=== PATIENT | female | born 1950 | race Caucasian/White ===

== ENCOUNTER 2019-09-07 01:59 | Emergency (ER) | payer MEDICARE, OTHER ==
[~2019-09-07] VITALS: Ht 157.5 cm; Wt 85.0 kg
[~2019-09-07 01:59] MED LIST: ADV50250 IH; ALBU18HF2 IH; ASPI-1265 PO; CICL6.1H4 IH; ESCI20TA29 PO; LEVO50TA67 PO; MONT10TA21 PO; MULT-821 PO; OLOP2.5D OP; PANT-47 PO
[2019-09-07] MEDS ORDERED: morphine 4 MG/ML inj SYRINge IM ONE ×2 (03:40→05:10)
[2019-09-07 04:41] VITALS: BP 154/69
[2019-09-07] MEDS ORDERED: CYCL-1 PO (05:50)
[2019-09-07] MEDS ORDERED: FLUT1DIS10 INH (19:04)
[2019-09-07] MEDS ORDERED: LEVO50TA8 PO (19:04)
[2019-09-07] MEDS ORDERED: ESCI20TA45 PO (19:04)
[2019-09-07] MEDS ORDERED: CYCL1DRO (19:04)
[2019-09-07] MEDS ORDERED: OMEP-50 PO (19:04)
[2019-09-07] MEDS ORDERED: METH2.5T PO (19:04)
[2019-09-07] MEDS ORDERED: METO-395 PO (19:04)
[2019-09-07] MEDS ORDERED: ATOR10TA70 PO (19:04)
[2019-09-07] MEDS ORDERED: CYCL1DRO EACHEYE (19:04)
[2019-09-07] MEDS ORDERED: METF750T46 PO (19:04)
[2019-09-07] MEDS ORDERED: PRE1T PO (19:04)
[2019-09-07] MEDS ORDERED: MONT10TA26 PO (19:04)
== END 2019-09-07 06:14 | disposition home or self-care (01) ==
LOC: ER 01:59
DX: M25.552 Pain in left hip (principal); E78.00 Pure hypercholesterolemia, unspecified; K21.9 Gastro-esophageal reflux disease without esophagitis; G89.29 Other chronic pain; F41.9 Anxiety disorder, unspecified; F32.9 Major depressive disorder, single episode, unspecified; Z90.49 Acquired absence of other specified parts of digestive tract; Z90.710 Acquired absence of both cervix and uterus; Z98.890 Other specified postprocedural states; Z56.0 Unemployment, unspecified; Z88.2 Allergy status to sulfonamides; Z79.82 Long term (current) use of aspirin; Z79.899 Other long term (current) drug therapy
CPT/HCPCS: 73502; 96372; 99284; J2270

== ENCOUNTER 2019-09-07 13:38 | Inpatient (IN) | payer MEDICARE, OTHER ==
[~2019-09-07] VITALS: Ht 157.5 cm; Wt 81.8 kg
[~2019-09-07 13:38] MED LIST changes: +CYCL-1 PO
[2019-09-07] MEDS ORDERED: ondansetron 4mg rapidly disintigrating tab PO ONE (15:15)
[2019-09-07] MEDS ORDERED: morphine 4 MG/ML inj SYRINge IM ONE (15:15)
[2019-09-07 15:38] LABS: BASOPHILS # (AUTO) 0.1 X10'3 (0-0.2); BASOPHILS % (AUTO) 0.8 % (0-1); EOSINOPHILS # (AUTO) 0.3 X10'3 (0-0.9); EOSINOPHILS % (AUTO) 2.2 % (0-6); HEMATOCRIT 32.6 % (35.0-45.0); HEMOGLOBIN 10.9 g/dl (12.0-16.0); LYMPHOCYTES % (AUTO) 14.4 % (21-51); MEAN CORPUSCULAR HEMOGLOBIN 31.5 PG (27.0-31.0); MEAN CORPUSCULAR HGB CONC 33.6 g/dL (33.0-36.5); MEAN CORPUSCULAR VOLUME 93.6 FL (78-98); MEAN PLATELET VOLUME 8.4 FL (7.4-10.4); MONOCYTES # (AUTO) 0.9 X10'3 (0-0.9); MONOCYTES % (AUTO) 6.3 % (2-12); NEUTROPHILS # (AUTO) 10.5 X10'3 (1.8-7.7); NEUTROPHILS % (AUTO) 76.3 % (42-75); PLATELET COUNT 201 X10'3 (140-440); RED BLOOD COUNT 3.48 X10'6 (4.20-5.60); RED CELL DISTRIBUTION WIDTH 14.1 % (11.5-14.5); WHITE BLOOD COUNT 13.8 X10'3 (4.5-11.0)
[2019-09-07 15:54] LABS: ALANINE AMINOTRANSFERASE 58 U/L (12-78); ALBUMIN 3.5 G/DL (3.4-5.0); ALBUMIN/GLOBULIN RATIO 0.9 (1.1-1.5); ALKALINE PHOSPHATASE 127 IU/L (46-116); ANION GAP 5 (8-16); ASPARTATE AMINO TRANSFERASE 36 U/L (10-37); BILIRUBIN,TOTAL 0.8 MG/DL (0.1-1.0); BLOOD UREA NITROGEN 29 MG/DL (7-18); BUN/CREATININE RATIO 17.5 (6.6-38.0); C-REACTIVE PROTEIN 5.01 MG/DL (0.0-0.5); CALCIUM 8.8 MG/DL (8.5-10.1); CHLORIDE 98 MMOL/L (99-107); CREATININE 1.66 MG/DL (0.40-0.90); GLUCOSE 106 MG/DL (70-104); POTASSIUM 4.5 MMOL/L (3.5-5.1); SODIUM 129 MMOL/L (135-145); TOTAL CARBON DIOXIDE 25.6 MMOL/L (24-32); TOTAL PROTEIN 7.5 G/DL (6.4-8.2); eGFR 31 ML/MIN
[2019-09-07 17:52] LABS: CLARITY,URINE CLOUDY (Clear); COLOR,URINE YELLOW (Yellow); GLUCOSE, URINE NEGATIVE (Neg); KETONES,URINE TRACE mg/dl (Neg); LEUKOCYTE ESTERASE ,URINE LARGE (Neg); NITRITES, URINE NEGATIVE (Neg); OCCULT BLOOD,URINE TRACE-INTACT (Neg); PROTEIN,URINE NEGATIVE (Neg); UROBILINOGEN,URINE 0.2 E.U/dL (0.2-1.0)
[2019-09-07 17:56] LABS: UA COLLECTION TYPE NON-SPECIFIED
[2019-09-07 18:01] LABS: BACTERIA,URINE 3+ /HPF (Neg); MUCUS STRANDS FEW /LPF (Neg); RBC,URINE 0-2 /HPF (0-2); SQUAMOUS EPITHELIAL CELL,UR MANY /LPF (FEW); WBC,URINE TNTC /HPF (0-4)
[2019-09-07] MEDS ORDERED: CefTRIAXone/D5W-Rocephin 1gm 50 ML IV STA (18:43)
[2019-09-07] MEDS ORDERED: morphine 4 MG/ML inj SYRINge IV PRN (18:45)
[2019-09-07] MEDS ORDERED: CYCL1DRO EACHEYE (19:04)
[2019-09-07] MEDS ORDERED: LEVO50TA8 PO (19:04)
[2019-09-07] MEDS ORDERED: FLUT1DIS10 INH (19:04)
[2019-09-07] MEDS ORDERED: ESCI20TA45 PO (19:04)
[2019-09-07] MEDS ORDERED: CYCL1DRO (19:04)
[2019-09-07] MEDS ORDERED: OMEP-50 PO (19:04)
[2019-09-07] MEDS ORDERED: ATOR10TA70 PO (19:04)
[2019-09-07] MEDS ORDERED: METH2.5T PO (19:04)
[2019-09-07] MEDS ORDERED: MONT10TA26 PO (19:04)
[2019-09-07] MEDS ORDERED: METF750T46 PO (19:04)
[2019-09-07] MEDS ORDERED: METO-395 PO (19:04)
[2019-09-07] MEDS ORDERED: PRE1T PO (19:04)
[2019-09-07] MEDS ORDERED: LORazepam 2 mg/ml vial IV ONE (19:15)
[2019-09-07] MEDS ORDERED: HYDROcodone/acetaminophen 5mg/325mg tablet PO PRN (19:40)
[2019-09-07] MEDS ORDERED: ondansetron/PF 4mg/2ml inj IV PRN (19:40)
[2019-09-07] MEDS ORDERED: acetaminophen 325mg tablet PO PRN ×2 (19:40)
[2019-09-07] MEDS ORDERED: mag hydrox/Alum hydrox/simeth 30ml oral suspension PO PRN (19:40)
[2019-09-07] MEDS ORDERED: morphine 2 MG/ML inj. syringe IV PRN (19:40)
[2019-09-07] MEDS ORDERED: morphine 4 MG/ML inj SYRINge IV STA (20:08)
[2019-09-07] MEDS: morphine 2 MG/ML inj. syringe IV PRN (20:18)
--- NOTE | 2019-09-07 20:55 | NUR ---
Received report from Dwaine GARRIDO from ED. Patient came up to floor via gurney from MRI. Accompanied by patient's S/O. Used slide board to move patient into bed. Bed placed in locked and low position. Call light placed within reach.
[2019-09-07 21:00] VITALS: BP 107/53
[2019-09-07] MEDS: budesonide 0.5mg/2ml UD nebule IH SCH (21:05)
[2019-09-07] MEDS ORDERED: gadobutrol 10mmol/10ml inj. IV ONE (21:13)
--- NOTE | 2019-09-07 21:39 | NUR ---
Page out to Dr. Salcedo regarding need for specific orders.
--- NOTE | 2019-09-07 22:06 | NUR ---
Dr. Salcedo called back and he is ok with placing patient on a CPAP, does not want the UA repeated at this time and no need for a PT eval and treat. I read him the report from the mri of lower extremity that shows possible septic arthritis. He does not want a PT eval until something is done regarding the fluid to the leg/hip and possible septic arthritis.
[2019-09-07] MEDS ORDERED: insulin Lispro (HumaLOG) vial - multi-dose SQ SCH (22:15)
[2019-09-07] MEDS ORDERED: dextrose ORAL solution 15 GM/59 ML bottle PO PRN ×2 (22:15)
[2019-09-07] MEDS ORDERED: MESSAGE TO PHARMACY PO ONE (22:15)
[2019-09-07] MEDS ORDERED: glucagon, human recombinant 1mg kit SUBCUT PRN (22:15)
[2019-09-07] MEDS ORDERED: dextrose 50%-water 50ml dispensing syringe IV PRN ×2 (22:15)
[2019-09-07] MEDS: cycloSPORINE 0.05% ophthalmic emulsion EACHEYE SCH (22:35)
--- NOTE | 2019-09-08 00:04 | NUR ---
Student documentation: I have reviewed and agree with all interventions, assessments performed and documented by Coni Student Nurse.
[2019-09-08] MEDS: HYDROcodone/acetaminophen 10/325mg tab PO PRN ×3 (04:59→21:02)
[2019-09-08 06:00] VITALS: BP 122/55
--- NOTE | 2019-09-08 06:39 | NUR ---
Problems reprioritized. Patient report given, questions answered & plan of care reviewed with Bhavna GARRIDO.
[2019-09-08 06:57] LABS: BASOPHILS % (AUTO) 0.2 % (0-1); EOSINOPHILS # (AUTO) 0.1 X10'3 (0-0.9); EOSINOPHILS % (AUTO) 1.2 % (0-6); HEMOGLOBIN 10.4 g/dl (12.0-16.0); LYMPHOCYTES # (AUTO) 1.5 X10'3 (1.1-4.8); LYMPHOCYTES % (AUTO) 13.1 % (21-51); MEAN CORPUSCULAR HEMOGLOBIN 31.6 PG (27.0-31.0); MEAN CORPUSCULAR HGB CONC 33.6 g/dL (33.0-36.5); MEAN CORPUSCULAR VOLUME 93.9 FL (78-98); MEAN PLATELET VOLUME 8.7 FL (7.4-10.4); MONOCYTES # (AUTO) 0.6 X10'3 (0-0.9); NEUTROPHILS # (AUTO) 9.3 X10'3 (1.8-7.7); NEUTROPHILS % (AUTO) 80.5 % (42-75); PLATELET COUNT 172 X10'3 (140-440); RED CELL DISTRIBUTION WIDTH 13.9 % (11.5-14.5); WHITE BLOOD COUNT 11.5 X10'3 (4.5-11.0)
[2019-09-08 07:09] LABS: ALBUMIN 2.9 G/DL (3.4-5.0); ANION GAP 8 (8-16); BLOOD UREA NITROGEN 31 MG/DL (7-18); BUN/CREATININE RATIO 18.5 (6.6-38.0); CALCIUM 8.6 MG/DL (8.5-10.1); CHLORIDE 100 MMOL/L (99-107); CREATININE 1.68 MG/DL (0.40-0.90); GLUCOSE 120 MG/DL (70-104); POTASSIUM 4.3 MMOL/L (3.5-5.1); SODIUM 133 MMOL/L (135-145); TOTAL CARBON DIOXIDE 25.5 MMOL/L (24-32); eGFR 30 ML/MIN
[2019-09-08] MEDS: budesonide 0.5mg/2ml UD nebule IH SCH ×2 (07:40→20:19)
[2019-09-08] MEDS: predniSONE 1 mg tablet PO SCH (08:00)
[2019-09-08] MEDS ORDERED: metFORMIN 500mg tablet PO SCH (08:00)
[2019-09-08] MEDS: aspirin 81mg tab.chew PO SCH (08:00)
[2019-09-08] MEDS: cycloSPORINE 0.05% ophthalmic emulsion EACHEYE SCH ×2 (08:00→20:47)
[2019-09-08] MEDS: ESCITALOPRAM OXALATE 5 MG TABLET PO SCH (08:24)
[2019-09-08] MEDS: montelukast 10mg tablet PO SCH (08:24)
[2019-09-08] MEDS: pantoprazole 40mg Tablet.DR PO SCH (08:25)
[2019-09-08] MEDS: atorvastatin 10mg tablet PO SCH (08:25)
[2019-09-08] MEDS: metoprolol succinate 25mg (24-HOUR) SR. Tablet PO SCH (08:25)
[2019-09-08] MEDS: levoTHYROXINE 25mcg tablet PO SCH (08:25)
[2019-09-08 10:00] VITALS: BP 111/45
--- NOTE | 2019-09-08 15:58 | NUR ---
DM Consult: Pt A1C less than 7 and not appropriate for DM ed at this time. Addendum: 09/08/19 at [address] Amended: Links added.
--- NOTE | 2019-09-08 17:00 | NUR ---
Received call from bedside nurse stating need for hip aspiration. Informed nurse to have hospitalist following patient contact the on-call IR. She states understanding, phone number given.
[2019-09-08 18:00] VITALS: BP 148/52
--- NOTE | 2019-09-08 18:09 | NUR ---
Report to Lashell GARRIDO
[2019-09-08] MEDS: insulin glargine (Lantus) pen - multi-dose SQ SCH (21:00)
[2019-09-08 22:00] VITALS: BP 148/38
[2019-09-09] MEDS: morphine 2 MG/ML inj. syringe IV PRN (00:19)
[2019-09-09 05:35] LABS: BASOPHILS % (AUTO) 0.2 % (0-1); EOSINOPHILS # (AUTO) 0.1 X10'3 (0-0.9); HEMATOCRIT 29.1 % (35.0-45.0); HEMOGLOBIN 9.8 g/dl (12.0-16.0); LYMPHOCYTES # (AUTO) 1.7 X10'3 (1.1-4.8); LYMPHOCYTES % (AUTO) 14.3 % (21-51); MEAN CORPUSCULAR HEMOGLOBIN 31.3 PG (27.0-31.0); MEAN CORPUSCULAR HGB CONC 33.6 g/dL (33.0-36.5); MEAN CORPUSCULAR VOLUME 93.3 FL (78-98); MEAN PLATELET VOLUME 8.8 FL (7.4-10.4); MONOCYTES # (AUTO) 0.6 X10'3 (0-0.9); NEUTROPHILS # (AUTO) 9.2 X10'3 (1.8-7.7); NEUTROPHILS % (AUTO) 79.5 % (42-75); PLATELET COUNT 160 X10'3 (140-440); RED BLOOD COUNT 3.12 X10'6 (4.20-5.60); RED CELL DISTRIBUTION WIDTH 14.1 % (11.5-14.5); WHITE BLOOD COUNT 11.6 X10'3 (4.5-11.0)
[2019-09-09 05:55] LABS: ALBUMIN 2.7 G/DL (3.4-5.0); ANION GAP 7 (8-16); BLOOD UREA NITROGEN 24 MG/DL (7-18); BUN/CREATININE RATIO 16.9 (6.6-38.0); CALCIUM 8.6 MG/DL (8.5-10.1); CHLORIDE 103 MMOL/L (99-107); CREATININE 1.42 MG/DL (0.40-0.90); GLUCOSE 133 MG/DL (70-104); POTASSIUM 4.3 MMOL/L (3.5-5.1); SODIUM 134 MMOL/L (135-145); TOTAL CARBON DIOXIDE 24.2 MMOL/L (24-32); eGFR 37 ML/MIN
[2019-09-09 06:00] VITALS: BP 126/50
--- NOTE | 2019-09-09 06:36 | NUR ---
Patient in room ORTHO 4011B. I have received report from RADHIKA RODRÍGUEZ and had the opportunity to ask questions and assume patient care.
[2019-09-09] MEDS: budesonide 0.5mg/2ml UD nebule IH SCH ×2 (07:52→19:26)
[2019-09-09] MEDS: aspirin 81mg tab.chew PO SCH (08:12)
[2019-09-09] MEDS: cycloSPORINE 0.05% ophthalmic emulsion EACHEYE SCH ×2 (08:12→19:15)
[2019-09-09] MEDS: ESCITALOPRAM OXALATE 5 MG TABLET PO SCH (08:13)
[2019-09-09] MEDS: atorvastatin 10mg tablet PO SCH (08:14)
[2019-09-09] MEDS: predniSONE 1 mg tablet PO SCH (08:15)
[2019-09-09] MEDS: metoprolol succinate 25mg (24-HOUR) SR. Tablet PO SCH (08:16)
[2019-09-09] MEDS: pantoprazole 40mg Tablet.DR PO SCH (08:16)
[2019-09-09] MEDS: montelukast 10mg tablet PO SCH (08:16)
[2019-09-09] MEDS: levoTHYROXINE 25mcg tablet PO SCH (08:16)
[2019-09-09] MEDS: HYDROcodone/acetaminophen 10/325mg tab PO PRN ×4 (08:18→19:15)
[2019-09-09] MEDS: magnesium hydroxide 30ml (MOM) UD suspension PO PRN (08:43)
[2019-09-09 10:00] VITALS: BP 102/48
[2019-09-09] MEDS ORDERED: fentaNYL/PF 50MCG/1 ML 2ML syringe ONE (10:08)
[2019-09-09 18:00] VITALS: BP 117/67
--- NOTE | 2019-09-09 18:22 | NUR ---
Page Sent PAGER ID: [phone] MESSAGE: KURT [id number]-RE: [id number] TIFFANI MARTINES...LAB STATED CELL COUNT WAS NOT ORDERED SO IT WAS NOT DONE BUT THE GRAMSTAIN AND CULTURE IS BEING PROCESSED
--- NOTE | 2019-09-09 18:30 | NUR ---
Patient in room ORTHO 4011. I have received report from Klely GARRIDO and had the opportunity to ask questions and assume patient care.
--- NOTE | 2019-09-09 18:45 | NUR ---
Problems reprioritized. Patient report given, questions answered & plan of care reviewed with RADHIKA HICKS.
[2019-09-09] MEDS ORDERED: vancomycin/NS 1 GM ADD-VANTAGE 250 ML IV SCH (20:00)
[2019-09-09] MEDS: insulin glargine (Lantus) pen - multi-dose SQ SCH (21:00)
[2019-09-09 22:00] VITALS: BP 103/73
[2019-09-10] MEDS: HYDROcodone/acetaminophen 10/325mg tab PO PRN ×4 (03:57→19:42)
[2019-09-10 05:55] LABS: BASOPHILS % (AUTO) 0.4 % (0-1); EOSINOPHILS # (AUTO) 0.2 X10'3 (0-0.9); EOSINOPHILS % (AUTO) 2.9 % (0-6); HEMOGLOBIN 9.7 g/dl (12.0-16.0); LYMPHOCYTES # (AUTO) 1.7 X10'3 (1.1-4.8); LYMPHOCYTES % (AUTO) 21.2 % (21-51); MEAN CORPUSCULAR HEMOGLOBIN 31.2 PG (27.0-31.0); MEAN CORPUSCULAR HGB CONC 33.6 g/dL (33.0-36.5); MEAN CORPUSCULAR VOLUME 92.9 FL (78-98); MEAN PLATELET VOLUME 9.4 FL (7.4-10.4); MONOCYTES # (AUTO) 0.5 X10'3 (0-0.9); MONOCYTES % (AUTO) 6.3 % (2-12); NEUTROPHILS # (AUTO) 5.4 X10'3 (1.8-7.7); NEUTROPHILS % (AUTO) 69.2 % (42-75); PLATELET COUNT 181 X10'3 (140-440); RED BLOOD COUNT 3.12 X10'6 (4.20-5.60); RED CELL DISTRIBUTION WIDTH 14.1 % (11.5-14.5); WHITE BLOOD COUNT 7.8 X10'3 (4.5-11.0)
[2019-09-10 06:00] VITALS: BP 113/50
[2019-09-10 06:04] LABS: ALBUMIN 2.5 G/DL (3.4-5.0); ANION GAP 8 (8-16); BLOOD UREA NITROGEN 21 MG/DL (7-18); BUN/CREATININE RATIO 15.7 (6.6-38.0); CALCIUM 8.8 MG/DL (8.5-10.1); CHLORIDE 103 MMOL/L (99-107); CREATININE 1.34 MG/DL (0.40-0.90); GLUCOSE 113 MG/DL (70-104); POTASSIUM 4.3 MMOL/L (3.5-5.1); SODIUM 137 MMOL/L (135-145); eGFR 39 ML/MIN
--- NOTE | 2019-09-10 06:24 | NUR ---
Problems reprioritized. Patient report given, questions answered & plan of care reviewed with Kelly GARRIDO.
--- NOTE | 2019-09-10 06:40 | NUR ---
Patient in room ORTHO 4011B. I have received report from RADHIKA HICKS and had the opportunity to ask questions and assume patient care.
[2019-09-10] MEDS: budesonide 0.5mg/2ml UD nebule IH SCH ×2 (07:26→20:28)
[2019-09-10] MEDS: cycloSPORINE 0.05% ophthalmic emulsion EACHEYE SCH ×2 (07:30→19:44)
[2019-09-10] MEDS: aspirin 81mg tab.chew PO SCH (07:30)
[2019-09-10] MEDS: predniSONE 1 mg tablet PO SCH (07:32)
[2019-09-10] MEDS: atorvastatin 10mg tablet PO SCH (07:32)
[2019-09-10] MEDS: pantoprazole 40mg Tablet.DR PO SCH (07:32)
[2019-09-10] MEDS: ESCITALOPRAM OXALATE 5 MG TABLET PO SCH (07:32)
[2019-09-10] MEDS: magnesium hydroxide 30ml (MOM) UD suspension PO PRN (07:33)
[2019-09-10] MEDS: montelukast 10mg tablet PO SCH (07:33)
[2019-09-10] MEDS: levoTHYROXINE 25mcg tablet PO SCH (07:33)
[2019-09-10] MEDS: metoprolol succinate 25mg (24-HOUR) SR. Tablet PO SCH (07:33)
[2019-09-10] MEDS: VANCOmycin 1250MG/NS 250ml Bag 250 ML IV SCH (08:41)
[2019-09-10 10:00] VITALS: BP 113/57
[2019-09-10 18:00] VITALS: BP 138/64
--- NOTE | 2019-09-10 18:22 | NUR ---
Problems reprioritized. Patient report given, questions answered & plan of care reviewed with RADHIKA KOENIG.
--- NOTE | 2019-09-10 18:30 | NUR ---
Patient in room ORTHO 4011. I have received report from KURT GARRIDO and had the opportunity to ask questions and assume patient care.
[2019-09-10] MEDS: lactobacillus rhamnosus 10,000 MMU CELLS/CAPSULE PO SCH (19:41)
[2019-09-10] MEDS: insulin glargine (Lantus) pen - multi-dose SQ SCH (21:00)
[2019-09-10 22:00] VITALS: BP 127/49
[2019-09-11] MEDS: HYDROcodone/acetaminophen 10/325mg tab PO PRN ×4 (00:18→20:52)
[2019-09-11 06:00] VITALS: BP 134/53
[2019-09-11 06:07] LABS: BASOPHILS # (AUTO) 0.1 X10'3 (0-0.2); BASOPHILS % (AUTO) 0.8 % (0-1); EOSINOPHILS # (AUTO) 0.4 X10'3 (0-0.9); LYMPHOCYTES # (AUTO) 1.8 X10'3 (1.1-4.8); LYMPHOCYTES % (AUTO) 22.4 % (21-51); MEAN CORPUSCULAR HEMOGLOBIN 32.2 PG (27.0-31.0); MEAN CORPUSCULAR HGB CONC 34.4 g/dL (33.0-36.5); MEAN CORPUSCULAR VOLUME 93.4 FL (78-98); MEAN PLATELET VOLUME 8.7 FL (7.4-10.4); MONOCYTES # (AUTO) 0.6 X10'3 (0-0.9); MONOCYTES % (AUTO) 7.2 % (2-12); NEUTROPHILS % (AUTO) 64.6 % (42-75); PLATELET COUNT 202 X10'3 (140-440); RED CELL DISTRIBUTION WIDTH 14.1 % (11.5-14.5); WHITE BLOOD COUNT 7.8 X10'3 (4.5-11.0)
[2019-09-11 06:15] LABS: ALBUMIN 2.5 G/DL (3.4-5.0); ANION GAP 9 (8-16); BLOOD UREA NITROGEN 23 MG/DL (7-18); BUN/CREATININE RATIO 17.3 (6.6-38.0); CHLORIDE 103 MMOL/L (99-107); CREATININE 1.33 MG/DL (0.40-0.90); GLUCOSE 107 MG/DL (70-104); POTASSIUM 4.4 MMOL/L (3.5-5.1); SODIUM 138 MMOL/L (135-145); TOTAL CARBON DIOXIDE 26.3 MMOL/L (24-32); eGFR 40 ML/MIN
--- NOTE | 2019-09-11 06:28 | NUR ---
Problems reprioritized. Patient report given, questions answered & plan of care reviewed with KURT GARRIDO.
--- NOTE | 2019-09-11 06:33 | NUR ---
Patient in room ORTHO 4011B. I have received report from RADHIKA KOENIG and had the opportunity to ask questions and assume patient care.
[2019-09-11] MEDS: aspirin 81mg tab.chew PO SCH (07:59)
[2019-09-11] MEDS: cycloSPORINE 0.05% ophthalmic emulsion EACHEYE SCH ×2 (07:59→22:06)
[2019-09-11] MEDS: lactobacillus rhamnosus 10,000 MMU CELLS/CAPSULE PO SCH ×2 (07:59→20:48)
[2019-09-11] MEDS: ESCITALOPRAM OXALATE 5 MG TABLET PO SCH (08:01)
[2019-09-11] MEDS: albuterol 2.5 MG/3 ML nebule NEB PRN ×2 (08:01→19:59)
[2019-09-11] MEDS: atorvastatin 10mg tablet PO SCH (08:01)
[2019-09-11] MEDS: budesonide 0.5mg/2ml UD nebule IH SCH ×2 (08:01→19:59)
[2019-09-11] MEDS: levoTHYROXINE 25mcg tablet PO SCH (08:02)
[2019-09-11] MEDS: pantoprazole 40mg Tablet.DR PO SCH (08:02)
[2019-09-11] MEDS: predniSONE 1 mg tablet PO SCH (08:02)
[2019-09-11] MEDS: montelukast 10mg tablet PO SCH (08:02)
[2019-09-11] MEDS: metoprolol succinate 25mg (24-HOUR) SR. Tablet PO SCH (08:03)
[2019-09-11] MEDS: VANCOmycin 1250MG/NS 250ml Bag 250 ML IV SCH (08:04)
[2019-09-11 10:00] VITALS: BP 148/45
[2019-09-11] MEDS: predniSONE 20 mg tablet PO SCH (14:49)
[2019-09-11 18:00] VITALS: BP 156/67
--- NOTE | 2019-09-11 18:29 | NUR ---
Problems reprioritized. Patient report given, questions answered & plan of care reviewed with RADHIKA RODRÍGUEZ.
[2019-09-11] MEDS: insulin glargine (Lantus) pen - multi-dose SQ SCH (21:00)
[2019-09-11 22:00] VITALS: BP 141/62
[2019-09-12 06:00] VITALS: BP 142/39
[2019-09-12 06:07] LABS: BASOPHILS # (AUTO) 0.1 X10'3 (0-0.2); BASOPHILS % (AUTO) 0.5 % (0-1); EOSINOPHILS % (AUTO) 0 % (0-6); HEMATOCRIT 32.5 % (35.0-45.0); LYMPHOCYTES # (AUTO) 1.8 X10'3 (1.1-4.8); LYMPHOCYTES % (AUTO) 17.9 % (21-51); MEAN CORPUSCULAR HEMOGLOBIN 31.7 PG (27.0-31.0); MEAN CORPUSCULAR HGB CONC 33.8 g/dL (33.0-36.5); MEAN CORPUSCULAR VOLUME 93.6 FL (78-98); MEAN PLATELET VOLUME 8.4 FL (7.4-10.4); MONOCYTES # (AUTO) 0.4 X10'3 (0-0.9); MONOCYTES % (AUTO) 4.1 % (2-12); NEUTROPHILS # (AUTO) 7.9 X10'3 (1.8-7.7); NEUTROPHILS % (AUTO) 77.5 % (42-75); PLATELET COUNT 280 X10'3 (140-440); RED BLOOD COUNT 3.47 X10'6 (4.20-5.60); RED CELL DISTRIBUTION WIDTH 14.3 % (11.5-14.5); WHITE BLOOD COUNT 10.2 X10'3 (4.5-11.0)
[2019-09-12 06:15] LABS: ALBUMIN 2.8 G/DL (3.4-5.0); ANION GAP 11 (8-16); BLOOD UREA NITROGEN 23 MG/DL (7-18); BUN/CREATININE RATIO 18.4 (6.6-38.0); CALCIUM 9.8 MG/DL (8.5-10.1); CHLORIDE 103 MMOL/L (99-107); CREATININE 1.25 MG/DL (0.40-0.90); GLUCOSE 153 MG/DL (70-104); POTASSIUM 4.5 MMOL/L (3.5-5.1); SODIUM 141 MMOL/L (135-145); TOTAL CARBON DIOXIDE 27.5 MMOL/L (24-32); eGFR 43 ML/MIN
[2019-09-12] MEDS: lactobacillus rhamnosus 10,000 MMU CELLS/CAPSULE PO SCH (07:51)
[2019-09-12] MEDS: montelukast 10mg tablet PO SCH (07:51)
[2019-09-12] MEDS: aspirin 81mg tab.chew PO SCH (07:51)
[2019-09-12] MEDS: atorvastatin 10mg tablet PO SCH (07:51)
[2019-09-12] MEDS: levoTHYROXINE 25mcg tablet PO SCH (07:51)
[2019-09-12] MEDS: pantoprazole 40mg Tablet.DR PO SCH (07:51)
[2019-09-12] MEDS: predniSONE 20 mg tablet PO SCH (07:51)
[2019-09-12] MEDS: cycloSPORINE 0.05% ophthalmic emulsion EACHEYE SCH (07:52)
[2019-09-12] MEDS: ESCITALOPRAM OXALATE 5 MG TABLET PO SCH (07:52)
[2019-09-12] MEDS: metoprolol succinate 25mg (24-HOUR) SR. Tablet PO SCH (07:52)
[2019-09-12] MEDS: budesonide 0.5mg/2ml UD nebule IH SCH (08:49)
[2019-09-12 09:58] VITALS: BP 143/56
[2019-09-12] MEDS ORDERED: PRED20TA PO (10:13)
--- NOTE | 2019-09-12 10:34 | NUR ---
Initial: patient presented to ED with left hip pain, admitted with septic arthritis of hip and BIJAL. History of DM A1c under 7, GERD, rheumatoid arthritis , depression, dyslipidemia. Eating well, PO intake 75-100% of carb controlled diet and meeting needs. No nutrition problem at this time. Recommend: 1. continue carb controlled diet 2. weight per rx Addendum: 09/12/19 at [address] Amended: Links added.
[2019-09-12] MEDS: HYDROcodone/acetaminophen 10/325mg tab PO PRN (12:25)
--- NOTE | 2019-09-12 14:12 | NUR ---
Patient stable for discharge, belongings gathered and sent home with patient. Prescriptions called into pharmacy. PIV removed, cannula intact.
[2019-09-13] MEDS ORDERED: VANCOMYCIN LEVEL IV ONE (07:30)
[2019-09-13] MEDS ORDERED: HYDR-4353 PO (12:57)
--- NOTE | 2019-09-13 15:23 | NUR ---
Case Management DC follow up: spoke to pt via telephone. Reports "doing better", waiting for Rx Antlers from pharmacy. Denies CP, emergent general pain, SOB at rest, respiratory distress, NV, dizziness, syncope episodes, abd pain, JENNINGS, blurry vision. Verbalizes understanding of medications and why prescribed. Taking as ordered, no ase noted r/t polypharmacy/new meds. verbalizes understanding of s/s that would warrant 9-11/ER visit for evaluation. Acknowledges importance of scheduling/keeping appointments w/PCP/[place], waiting for call back to schedule/referrals/specialists/Dr Dahl 09/19/2019 r/t tapering dose of prednisone. Needs met, questions answered at DC. No further questions at this time. Addendum: 09/13/19 at 1526 by Emily Nelson RN Case management DC follow up: [facility] will be at pt home for intake Monday09/15/19.
== END 2019-09-12 13:10 | disposition home health service (06) | DRG 545 ==
LOC: ER 13:39 → OBSVTOIN 19:36 → ED HOLD 19:36 → EDBEDREQ 20:30 → ORTHO 4S 21:02
PROVIDERS: ADMIT Internal Medicine; ATTEND Internal Medicine
PROC: BQ3FYZZ Magnetic Resonance Imaging (MRI) of Left Lower Leg using Other Contrast (ICD-10-PCS; 2019-09-07)
PROC: 5A09357 Assistance with Respiratory Ventilation, Less than 24 Consecutive Hours, Continuous Positive Airway Pressure (ICD-10-PCS; 2019-09-08)
PROC: 0S9B3ZZ Drainage of Left Hip Joint, Percutaneous Approach (ICD-10-PCS; principal; 2019-09-09)
PROC: 5A09357 Assistance with Respiratory Ventilation, Less than 24 Consecutive Hours, Continuous Positive Airway Pressure (ICD-10-PCS; 2019-09-10)
DX: M06.9 Rheumatoid arthritis, unspecified (principal); N17.0 Acute kidney failure with tubular necrosis; N39.0 Urinary tract infection, site not specified; E87.1 Hypo-osmolality and hyponatremia; J44.9 Chronic obstructive pulmonary disease, unspecified; D64.9 Anemia, unspecified; E03.9 Hypothyroidism, unspecified; E78.00 Pure hypercholesterolemia, unspecified; R31.9 Hematuria, unspecified; F32.9 Major depressive disorder, single episode, unspecified; E11.22 Type 2 diabetes mellitus with diabetic chronic kidney disease; N18.3 Chronic kidney disease, stage 3 (moderate); F41.9 Anxiety disorder, unspecified; G47.33 Obstructive sleep apnea (adult) (pediatric); G89.29 Other chronic pain; K21.9 Gastro-esophageal reflux disease without esophagitis; M54.9 Dorsalgia, unspecified; M25.452 Effusion, left hip; M25.531 Pain in right wrist; E78.5 Hyperlipidemia, unspecified; Z79.82 Long term (current) use of aspirin; Z79.84 Long term (current) use of oral hypoglycemic drugs; Z79.899 Other long term (current) drug therapy; Z88.1 Allergy status to other antibiotic agents; Z90.710 Acquired absence of both cervix and uterus; Z88.2 Allergy status to sulfonamides; Z90.49 Acquired absence of other specified parts of digestive tract
CPT/HCPCS: 10160; 36415; 72148; 72195; 73723; 76942; 80048; 80053; 81001; 82948; 83036; 83605; 84145; 84443; 85025; 85651; 86140; 87040; 87070; 87081; 94640; 94760; 96365; 96375; 96376; 97116; 97530; 99285; A9585; G0378; J0696; J1815; J2060; J2270; J3010; J3370; J7512; J7626

== ENCOUNTER 2020-11-26 20:58 | Emergency (ER) | payer MEDICARE, OTHER ==
[~2020-11-26] VITALS: Ht 157.5 cm; Wt 81.8 kg
[~2020-11-26 20:58] MED LIST changes: -ADV50250 IH; +ATOR10TA70 PO; -CICL6.1H4 IH; -CYCL-1 PO; +CYCL1DRO; +CYCL1DRO EACHEYE; -ESCI20TA29 PO; +ESCI20TA39 PO; +FLUT1DIS10 INH; -LEVO50TA67 PO; +LEVO50TA8 PO; +METF750T46 PO; +METH2.5T PO; +METO-395 PO; -MONT10TA21 PO; +MONT10TA32 PO; -MULT-821 PO; -OLOP2.5D OP; +OLOP2.5D12 OP; +OMEP-50 PO; -PANT-47 PO; +PRED20TA PO
[2020-11-26] MEDS ORDERED: aspirin 81mg tab.chew PO ONE (21:30)
[2020-11-26] MEDS ORDERED: nitroGLYCERIN 0.4mg SUBLingual tab SL PRN (21:30)
[2020-11-26 21:51] LABS: BASOPHILS % (AUTO) 0.3 % (0-1); EOSINOPHILS # (AUTO) 0.3 X10'3 (0-0.9); EOSINOPHILS % (AUTO) 2.5 % (0-6); HEMATOCRIT 33.4 % (35.0-45.0); HEMOGLOBIN 10.8 g/dl (12.0-16.0); LYMPHOCYTES # (AUTO) 2.5 X10'3 (1.1-4.8); LYMPHOCYTES % (AUTO) 20.4 % (21-51); MEAN CORPUSCULAR HEMOGLOBIN 31.2 PG (27.0-31.0); MEAN CORPUSCULAR HGB CONC 32.4 g/dL (33.0-36.5); MEAN CORPUSCULAR VOLUME 96.4 FL (78-98); MEAN PLATELET VOLUME 8.5 FL (7.4-10.4); MONOCYTES # (AUTO) 0.3 X10'3 (0-0.9); MONOCYTES % (AUTO) 2.6 % (2-12); NEUTROPHILS # (AUTO) 9.1 X10'3 (1.8-7.7); NEUTROPHILS % (AUTO) 74.2 % (42-75); PLATELET COUNT 245 X10'3 (140-440); RED BLOOD COUNT 3.46 X10'6 (4.20-5.60); RED CELL DISTRIBUTION WIDTH 15.6 % (11.5-14.5); WHITE BLOOD COUNT 12.2 X10'3 (4.5-11.0)
[2020-11-26 22:06] LABS: ALANINE AMINOTRANSFERASE 42 U/L (12-78); ALBUMIN 3.5 G/DL (3.4-5.0); ALBUMIN/GLOBULIN RATIO 0.8 (1.1-1.5); ALKALINE PHOSPHATASE 135 IU/L (46-116); ANION GAP 8 (8-16); ASPARTATE AMINO TRANSFERASE 21 U/L (10-37); BILIRUBIN,TOTAL 0.3 MG/DL (0.1-1.0); BLOOD UREA NITROGEN 24 MG/DL (7-18); CALCIUM 9.3 MG/DL (8.5-10.1); CHLORIDE 104 MMOL/L (99-107); CREATININE 1.41 MG/DL (0.40-0.90); GLUCOSE 145 MG/DL (70-104); POTASSIUM 4.3 MMOL/L (3.5-5.1); SODIUM 139 MMOL/L (135-145); TOTAL CARBON DIOXIDE 26.6 MMOL/L (24-32); TOTAL PROTEIN 7.7 G/DL (6.4-8.2); eGFR 37 ML/MIN
[2020-11-26 22:14] LABS: TROPONIN I < 0.04 NG/ML (0.0-0.05)
[2020-11-26] MEDS ORDERED: ondansetron/PF 4mg/2ml inj IV ONE (23:10)
[2020-11-26] MEDS ORDERED: iohexol 350MG/ML 100ml bottle IV ONE (23:35)
[2020-11-26] MEDS: morphine 4 MG/ML inj SYRINge IV PRN (23:38)
--- NOTE | 2020-11-27 00:23 | NUR ---
CT TO TAKE PT FOR SCAN.
[2020-11-27] MEDS ORDERED: MESSAGE TO NURSING PO ONE (00:45)
[2020-11-27] MEDS: morphine 4 MG/ML inj SYRINge IV PRN (00:49)
[2020-11-27] MEDS ORDERED: HYDROcodone/acetaminophen 10/325mg tab PO ONE (03:25)
[2020-11-27] MEDS ORDERED: HYDR-3972 PO (03:33)
[2020-11-27 04:07] VITALS: BP 141/65
== END 2020-11-27 04:10 | disposition home or self-care (01) ==
LOC: ER 20:59
DX: R51.9 Headache, unspecified (principal); M54.89 Other dorsalgia; R07.81 Pleurodynia; R07.2 Precordial pain; E78.00 Pure hypercholesterolemia, unspecified; K21.9 Gastro-esophageal reflux disease without esophagitis; M19.90 Unspecified osteoarthritis, unspecified site; G89.29 Other chronic pain; F41.9 Anxiety disorder, unspecified; F32.9 Major depressive disorder, single episode, unspecified; Z90.49 Acquired absence of other specified parts of digestive tract; Z90.710 Acquired absence of both cervix and uterus; Z98.890 Other specified postprocedural states; Z56.0 Unemployment, unspecified; Z88.2 Allergy status to sulfonamides; Z79.82 Long term (current) use of aspirin; Z79.899 Other long term (current) drug therapy
CPT/HCPCS: 36415; 71045; 71275; 80053; 83880; 84484; 85025; 93005; 96374; 96375; 96376; 99285; J2270; J2405; Q9967

== ENCOUNTER 2020-12-10 17:52 | Inpatient (IN) | payer MEDICARE, OTHER ==
[~2020-12-10] VITALS: Ht 157.5 cm; Wt 81.8 kg
[~2020-12-10 17:52] MED LIST changes: +ADV50250 IH; +APIX2.5T PO; +ASPI-1 PO; -ASPI-1265 PO; +CARV6.253 PO; +COL0.6T PO; -CYCL1DRO; -CYCL1DRO EACHEYE; +FERR-39 PO; -FLUT1DIS10 INH; +HYDR-3972 PO; -METO-395 PO; -OLOP2.5D12 OP; +PRE1T PO; -PRED20TA PO; +TAM50T PO
[2020-12-10 19:39] LABS: BASOPHILS % (AUTO) 0.5 % (0-1); EOSINOPHILS # (AUTO) 0.2 X10'3 (0-0.9); EOSINOPHILS % (AUTO) 2.7 % (0-6); HEMATOCRIT 35.1 % (35.0-45.0); HEMOGLOBIN 11.2 g/dl (12.0-16.0); LYMPHOCYTES # (AUTO) 0.8 X10'3 (1.1-4.8); LYMPHOCYTES % (AUTO) 12.8 % (21-51); MEAN CORPUSCULAR HEMOGLOBIN 30.7 PG (27.0-31.0); MEAN CORPUSCULAR VOLUME 95.9 FL (78-98); MEAN PLATELET VOLUME 8.2 FL (7.4-10.4); MONOCYTES # (AUTO) 0.4 X10'3 (0-0.9); MONOCYTES % (AUTO) 5.6 % (2-12); NEUTROPHILS # (AUTO) 4.9 X10'3 (1.8-7.7); NEUTROPHILS % (AUTO) 78.4 % (42-75); PLATELET COUNT 305 X10'3 (140-440); RED BLOOD COUNT 3.66 X10'6 (4.20-5.60); RED CELL DISTRIBUTION WIDTH 16.1 % (11.5-14.5); WHITE BLOOD COUNT 6.3 X10'3 (4.5-11.0)
[2020-12-10 19:51] LABS: ALANINE AMINOTRANSFERASE 24 U/L (12-78); ALBUMIN 2.3 G/DL (3.4-5.0); ALBUMIN/GLOBULIN RATIO 0.5 (1.1-1.5); ALKALINE PHOSPHATASE 138 IU/L (46-116); ANION GAP 8 (8-16); ASPARTATE AMINO TRANSFERASE 27 U/L (10-37); BILIRUBIN,TOTAL 0.4 MG/DL (0.1-1.0); BLOOD UREA NITROGEN 21 MG/DL (7-18); BUN/CREATININE RATIO 16.2 (6.6-38.0); CALCIUM 8.8 MG/DL (8.5-10.1); CHLORIDE 102 MMOL/L (99-107); GLUCOSE 127 MG/DL (70-104); POTASSIUM 4.4 MMOL/L (3.5-5.1); SODIUM 140 MMOL/L (135-145); TOTAL CARBON DIOXIDE 30.1 MMOL/L (24-32); TOTAL PROTEIN 6.9 G/DL (6.4-8.2); eGFR 41 ML/MIN
[2020-12-10 19:59] LABS: TROPONIN I < 0.04 NG/ML (0.0-0.05)
--- NOTE | 2020-12-10 21:44 | NUR ---
relieving RN for break, pt is up to bedside commode without assist to have bowel movement and urinate,
--- NOTE | 2020-12-10 22:09 | NUR ---
Pt states she became lightheaded when she went from the commode back to bed. Pt with no other complaints. Still awaiting vascular study.
[2020-12-10] MEDS ORDERED: iohexol 350MG/ML 100ml bottle IV ONE (22:50)
--- NOTE | 2020-12-11 00:03 | NUR ---
Pt waiting for results of last study. Pt denies SOB or CP at this time. remains at bedside
[2020-12-11] MEDS ORDERED: HYDROcodone/acetaminophen 5mg/325mg tablet PO ONE (00:30)
[2020-12-11] MEDS ORDERED: furosemide 10 MG/1 ML 10ml inj IV ONE (00:30)
[2020-12-11] MEDS ORDERED: albuterol 2.5 MG/3 ML nebule NEB ONE (00:30)
[2020-12-11] MEDS ORDERED: ceFAZolin/D5W- 1GM premix 50 ML IV ONE (02:15)
[2020-12-11] MEDS ORDERED: mag hydrox/Alum hydrox/simeth 30ml oral suspension PO PRN (02:50)
[2020-12-11] MEDS ORDERED: magnesium hydroxide 30ml (MOM) UD suspension PO PRN (02:50)
[2020-12-11] MEDS ORDERED: magnesium 4gm in 100ml NS 100 ML IV PRN (02:50)
[2020-12-11] MEDS ORDERED: potassium Cl 40MEQ/1/2NS 520ml 520 ML IV PRN ×2 (02:50)
[2020-12-11] MEDS ORDERED: magnesium 2GM in 50ml NS 50 ML IV PRN (02:50)
[2020-12-11] MEDS ORDERED: morphine 2 MG/ML inj. syringe IV PRN ×2 (02:50→15:20)
[2020-12-11] MEDS ORDERED: potassium Cl 20 mEq SR tablet PO PRN (02:50)
[2020-12-11] MEDS ORDERED: ondansetron/PF 4mg/2ml inj IV PRN ×2 (02:50→15:20)
[2020-12-11] MEDS ORDERED: magnesium Cl slow-release 64mg tablet PO PRN (02:50)
[2020-12-11] MEDS ORDERED: acetaminophen 325mg tablet PO PRN ×2 (02:50)
--- NOTE | 2020-12-11 03:24 | NUR ---
Pharmacy called for Ancef 1g ordered by ED physician STAT x 1 now. Pharmacy called hospitalist and will now receive Ancef 1g every 8 hours starting at 0800 this morning.
[2020-12-11] MEDS ORDERED: dextrose ORAL solution 15 GM/59 ML bottle PO PRN ×2 (05:55)
[2020-12-11] MEDS ORDERED: dextrose 50%-water 50ml dispensing syringe IV PRN ×2 (05:55)
[2020-12-11] MEDS ORDERED: MESSAGE TO PHARMACY PO ONE (05:55)
[2020-12-11] MEDS ORDERED: glucagon, human recombinant 1mg kit SUBCUT PRN (05:55)
[2020-12-11] MEDS: pantoprazole 40mg Tablet.DR PO SCH (07:44)
[2020-12-11] MEDS: atorvastatin 10mg tablet PO SCH (07:44)
[2020-12-11] MEDS: ferrous sulfate 325mg tablet PO SCH (07:45)
[2020-12-11] MEDS: carvedilol 6.25mg tablet PO SCH ×2 (07:45→19:57)
[2020-12-11] MEDS: levoTHYROXINE 25mcg tablet PO SCH (07:45)
[2020-12-11] MEDS: aspirin 325mg tablet PO SCH (07:45)
[2020-12-11] MEDS: ESCITALOPRAM OXALATE 5 MG TABLET PO SCH (07:45)
[2020-12-11] MEDS: montelukast 10mg tablet PO SCH (07:45)
[2020-12-11] MEDS: furosemide 10 MG/1 ML 10ml inj IV SCH (07:45)
[2020-12-11] MEDS: ceFAZolin/D5W- 1GM premix 50 ML IV SCH ×3 (07:46→17:50)
[2020-12-11] MEDS: albuterol 2.5 MG/3 ML nebule NEB SCH ×4 (08:00→20:22)
[2020-12-11] MEDS: heparin, porcine 5000 units/ml vial SQ SCH ×2 (08:00→19:59)
[2020-12-11] MEDS: K and/or MAG REPLACEMENT MC SCH ×2 (08:00→20:00)
[2020-12-11] MEDS: budesonide 0.5mg/2ml UD nebule IH SCH ×3 (08:00→20:22)
--- NOTE | 2020-12-11 08:00 | NUR ---
per dr. jesús aguero heparin
[2020-12-11] MEDS: flecainide 50mg tablet PO SCH ×2 (08:03→19:59)
[2020-12-11] MEDS: predniSONE 1 mg tablet PO SCH (08:04)
[2020-12-11] MEDS: colchicine 0.6mg tablet PO SCH (08:04)
--- NOTE | 2020-12-11 08:45 | NUR ---
TX STOPPED PT NEEDED COMMODE WELL DR. JOHN AND CARDIOLOGY PA SHOWED UP FOR PT Addendum: 12/11/20 at 0846 [address] RT Amended: Links added.
[2020-12-11 09:39] LABS: HEMOGLOBIN A1C 6.2 % (4.5-6.2)
[2020-12-11] MEDS ORDERED: APIX5TAB3 PO (09:53)
--- NOTE | 2020-12-11 10:23 | NUR ---
patient awake,denies complaints at this time.call light within reach.
--- NOTE | 2020-12-11 11:54 | NUR ---
patient asleep,we will monitor.
[2020-12-11] MEDS ORDERED: heparin 10,000 units/1 ML INJ ONE (14:43)
[2020-12-11] MEDS ORDERED: LIDOcaine 1% (10mg/ml) 2ml vial ONE (14:43)
[2020-12-11] MEDS ORDERED: ondansetron 4mg rapidly disintigrating tab PO PRN (15:00)
[2020-12-11] MEDS ORDERED: proCHLORperazine 10 MG/2 ml inj IV PRN (15:20)
[2020-12-11] MEDS ORDERED: ringers solution, lacted 1,000 ML IV SCH (15:20)
[2020-12-11] MEDS ORDERED: morphine 4 MG/ML inj SYRINge IV PRN (15:20)
[2020-12-11] MEDS ORDERED: meperidine/PF 25mg/ml syringe IV PRN ×3 (15:20)
--- NOTE | 2020-12-11 15:22 | NUR ---
REPORT CALLED TO [employer]RI[employer]ANER CRAIG
[2020-12-11] MEDS ORDERED: propofol inj 20 ML IV ONE (15:35)
[2020-12-11] MEDS ORDERED: midazolam 1 mg/ML 2ml injection ONE (15:35)
[2020-12-11] MEDS ORDERED: fentaNYL /PF 50mcg/ml 5ml ampule ONE (15:35)
[2020-12-11 18:00] VITALS: BP 124/55
--- NOTE | 2020-12-11 18:20 | NUR ---
Patient in room ORTHO 4023. I have received report from Gabby GARRIDO and had the opportunity to ask questions and assume patient care.
[2020-12-11] MEDS: lactobacillus rhamnosus 10,000 MMU CELLS/CAPSULE PO SCH (19:57)
[2020-12-11] MEDS: HYDROcodone/acetaminophen 5mg/325mg tablet PO PRN (19:58)
[2020-12-11] MEDS ORDERED: temazepam 15mg capsule PO PRN (21:00)
[2020-12-11] MEDS: insulin glargine (Lantus) pen - multi-dose SQ SCH (21:00)
[2020-12-11 22:00] VITALS: BP 128/46
[2020-12-12] VITALS (12 sets, daily range): BP systolic 111–146; BP diastolic 36–63
[2020-12-12] MEDS: albuterol 2.5 MG/3 ML nebule NEB SCH ×4 (02:37→19:55)
--- NOTE | 2020-12-12 06:26 | NUR ---
Problems reprioritized. Patient report given, questions answered & plan of care reviewed with Gabby GARRIDO.
[2020-12-12 06:38] LABS: ALBUMIN 2.2 G/DL (3.4-5.0); ANION GAP 4 (8-16); BLOOD UREA NITROGEN 21 MG/DL (7-18); CALCIUM 8.8 MG/DL (8.5-10.1); CHLORIDE 98 MMOL/L (99-107); CREATININE 1.61 MG/DL (0.40-0.90); GLUCOSE 108 MG/DL (70-104); MAGNESIUM 1.7 MG/DL (1.5-2.4); POTASSIUM 3.5 MMOL/L (3.5-5.1); SODIUM 136 MMOL/L (135-145); TOTAL CARBON DIOXIDE 33.8 MMOL/L (24-32); eGFR 32 ML/MIN
--- NOTE | 2020-12-12 06:59 | NUR ---
Patient in room ORTHO 4023. I have received report from Christina GARRIDO and had the opportunity to ask questions and assume patient care.
[2020-12-12 07:06] LABS: BASOPHILS # (AUTO) 0.1 X10'3 (0-0.2); BASOPHILS % (AUTO) 0.4 % (0-1); EOSINOPHILS # (AUTO) 0.3 X10'3 (0-0.9); HEMATOCRIT 22.2 % (35.0-45.0); LYMPHOCYTES # (AUTO) 1.5 X10'3 (1.1-4.8); LYMPHOCYTES % (AUTO) 10.2 % (21-51); MEAN CORPUSCULAR HEMOGLOBIN 30.3 PG (27.0-31.0); MEAN CORPUSCULAR HGB CONC 31.8 g/dL (33.0-36.5); MEAN CORPUSCULAR VOLUME 95.3 FL (78-98); MEAN PLATELET VOLUME 8.3 FL (7.4-10.4); MONOCYTES # (AUTO) 1.1 X10'3 (0-0.9); MONOCYTES % (AUTO) 7.2 % (2-12); NEUTROPHILS # (AUTO) 11.8 X10'3 (1.8-7.7); NEUTROPHILS % (AUTO) 80.2 % (42-75); PLATELET COUNT 407 X10'3 (140-440); RED BLOOD COUNT 2.32 X10'6 (4.20-5.60); RED CELL DISTRIBUTION WIDTH 15.8 % (11.5-14.5); WHITE BLOOD COUNT 14.8 X10'3 (4.5-11.0)
--- NOTE | 2020-12-12 07:17 | NUR ---
PAGER ID: [phone] MESSAGE: Gabby GARRIDO [phone] RE: Xiao Cates [id number]. Critical Hgb - 7.0. Thank you.
[2020-12-12] MEDS: K and/or MAG REPLACEMENT MC SCH ×2 (08:00→21:04)
--- NOTE | 2020-12-12 08:58 | NUR ---
DM consult: Pt with A1c 6.2%, DM education not warranted at this time. Will continue to follow. Addendum: 12/12/20 at [address] Amended: Links added.
[2020-12-12] MEDS: atorvastatin 10mg tablet PO SCH (09:12)
[2020-12-12] MEDS: lactobacillus rhamnosus 10,000 MMU CELLS/CAPSULE PO SCH ×2 (09:12→21:11)
[2020-12-12] MEDS: ESCITALOPRAM OXALATE 5 MG TABLET PO SCH (09:14)
[2020-12-12] MEDS: aspirin 325mg tablet PO SCH (09:14)
[2020-12-12] MEDS: carvedilol 6.25mg tablet PO SCH ×2 (09:14→21:12)
[2020-12-12] MEDS: ferrous sulfate 325mg tablet PO SCH (09:15)
[2020-12-12] MEDS: pantoprazole 40mg Tablet.DR PO SCH (09:15)
[2020-12-12] MEDS: levoTHYROXINE 25mcg tablet PO SCH (09:15)
[2020-12-12] MEDS: colchicine 0.6mg tablet PO SCH (09:15)
[2020-12-12] MEDS: predniSONE 1 mg tablet PO SCH (09:17)
[2020-12-12] MEDS: furosemide 10 MG/1 ML 10ml inj IV SCH (09:19)
[2020-12-12] MEDS: heparin, porcine 5000 units/ml vial SQ SCH ×2 (09:20→21:11)
[2020-12-12] MEDS: flecainide 50mg tablet PO SCH ×2 (09:21→21:12)
[2020-12-12] MEDS: budesonide 0.5mg/2ml UD nebule IH SCH ×2 (09:36→19:55)
[2020-12-12] MEDS: montelukast 10mg tablet PO SCH (10:09)
[2020-12-12] MEDS: benzocaine/menthol oral lozeng 1 EACH BOX MM PRN (11:03)
[2020-12-12 11:37] LABS: MEAN CORPUSCULAR HEMOGLOBIN 30.3 PG (27.0-31.0); MEAN CORPUSCULAR VOLUME 94.7 FL (78-98); MEAN PLATELET VOLUME 8.1 FL (7.4-10.4); PLATELET COUNT 383 X10'3 (140-440); RED BLOOD COUNT 2.26 X10'6 (4.20-5.60); RED CELL DISTRIBUTION WIDTH 15.6 % (11.5-14.5); WHITE BLOOD COUNT 14.3 X10'3 (4.5-11.0)
[2020-12-12 11:42] LABS: HEMATOCRIT 21.5 % (35.0-45.0); HEMOGLOBIN 6.9 g/dl (12.0-16.0)
--- NOTE | 2020-12-12 11:46 | NUR ---
PAGER ID: [phone] MESSAGE: Gabby savage [phone] RE: Xiao Cates [id number]. Critical Hgb 6.9 Critical Hct 21.5. Thank you
--- NOTE | 2020-12-12 18:52 | NUR ---
Problems reprioritized. Patient report given, questions answered & plan of care reviewed with beck savage.
--- NOTE | 2020-12-12 19:00 | NUR ---
Patient in room ORTHO 4023. I have received report from RADHIKA Pierre and had the opportunity to ask questions and assume patient care.
[2020-12-12] MEDS: insulin glargine (Lantus) pen - multi-dose SQ SCH (21:00)
[2020-12-13 01:01] LABS: HEMOGLOBIN 9.8 g/dl (12.0-16.0); MEAN CORPUSCULAR HEMOGLOBIN 31.4 PG (27.0-31.0); MEAN CORPUSCULAR HGB CONC 33.9 g/dL (33.0-36.5); MEAN CORPUSCULAR VOLUME 92.7 FL (78-98); PLATELET COUNT 365 X10'3 (140-440); RED BLOOD COUNT 3.13 X10'6 (4.20-5.60); WHITE BLOOD COUNT 11.9 X10'3 (4.5-11.0)
[2020-12-13] MEDS: benzonatate 100mg capsule PO PRN ×2 (02:00→22:19)
[2020-12-13] MEDS: albuterol 2.5 MG/3 ML nebule NEB SCH ×4 (02:15→20:19)
[2020-12-13] MEDS: HYDROcodone/acetaminophen 5mg/325mg tablet PO PRN ×2 (02:31→22:22)
--- NOTE | 2020-12-13 06:50 | NUR ---
Patient in room ORTHO 4023. I have received report from RADHIKA Reed and had the opportunity to ask questions and assume patient care.
[2020-12-13 07:00] VITALS: BP 133/51
--- NOTE | 2020-12-13 07:04 | NUR ---
Problems reprioritized. Patient report given, questions answered & plan of care reviewed with RADHIKA Stovall.
[2020-12-13] MEDS: heparin, porcine 5000 units/ml vial SQ SCH ×2 (08:00→20:41)
[2020-12-13] MEDS: aspirin 325mg tablet PO SCH (08:02)
[2020-12-13] MEDS: budesonide 0.5mg/2ml UD nebule IH SCH ×2 (08:05→20:19)
[2020-12-13 08:15] LABS: ALBUMIN 2.1 G/DL (3.4-5.0); ANION GAP 6 (8-16); BLOOD UREA NITROGEN 21 MG/DL (7-18); CALCIUM 8.8 MG/DL (8.5-10.1); CHLORIDE 102 MMOL/L (99-107); GLUCOSE 109 MG/DL (70-104); MAGNESIUM 1.7 MG/DL (1.5-2.4); POTASSIUM 3.4 MMOL/L (3.5-5.1); SODIUM 140 MMOL/L (135-145); TOTAL CARBON DIOXIDE 32.2 MMOL/L (24-32); eGFR 37 ML/MIN
[2020-12-13 08:19] LABS: BASOPHILS % (AUTO) 0.4 % (0-1); EOSINOPHILS # (AUTO) 0.4 X10'3 (0-0.9); EOSINOPHILS % (AUTO) 3.6 % (0-6); HEMATOCRIT 29.9 % (35.0-45.0); LYMPHOCYTES # (AUTO) 1.6 X10'3 (1.1-4.8); LYMPHOCYTES % (AUTO) 14.6 % (21-51); MEAN CORPUSCULAR HEMOGLOBIN 31.1 PG (27.0-31.0); MEAN CORPUSCULAR HGB CONC 33.5 g/dL (33.0-36.5); MEAN CORPUSCULAR VOLUME 92.9 FL (78-98); MEAN PLATELET VOLUME 8.2 FL (7.4-10.4); MONOCYTES % (AUTO) 9.3 % (2-12); NEUTROPHILS # (AUTO) 7.7 X10'3 (1.8-7.7); NEUTROPHILS % (AUTO) 72.1 % (42-75); PLATELET COUNT 365 X10'3 (140-440); RED BLOOD COUNT 3.22 X10'6 (4.20-5.60); RED CELL DISTRIBUTION WIDTH 15.8 % (11.5-14.5); WHITE BLOOD COUNT 10.6 X10'3 (4.5-11.0)
[2020-12-13] MEDS: K and/or MAG REPLACEMENT MC SCH ×2 (08:20→20:00)
[2020-12-13] MEDS: lactobacillus rhamnosus 10,000 MMU CELLS/CAPSULE PO SCH ×2 (08:34→20:39)
[2020-12-13] MEDS: carvedilol 6.25mg tablet PO SCH ×2 (08:34→20:44)
[2020-12-13] MEDS: pantoprazole 40mg Tablet.DR PO SCH (08:34)
[2020-12-13] MEDS: ferrous sulfate 325mg tablet PO SCH (08:35)
[2020-12-13] MEDS: ESCITALOPRAM OXALATE 5 MG TABLET PO SCH (08:35)
[2020-12-13] MEDS: potassium Cl 20 mEq SR tablet PO PRN ×3 (08:36→20:40)
[2020-12-13] MEDS: flecainide 50mg tablet PO SCH ×2 (08:36→20:40)
[2020-12-13] MEDS: levoTHYROXINE 25mcg tablet PO SCH (08:36)
[2020-12-13] MEDS: predniSONE 1 mg tablet PO SCH (08:37)
[2020-12-13] MEDS: atorvastatin 10mg tablet PO SCH (08:37)
[2020-12-13] MEDS: montelukast 10mg tablet PO SCH (08:37)
[2020-12-13] MEDS: colchicine 0.6mg tablet PO SCH (08:38)
[2020-12-13] MEDS: furosemide 10 MG/1 ML 10ml inj IV SCH (08:41)
[2020-12-13 10:00] VITALS: BP 105/47
[2020-12-13 11:12] LABS: HEMATOCRIT 30.1 % (35.0-45.0); HEMOGLOBIN 9.9 g/dl (12.0-16.0); MEAN CORPUSCULAR HEMOGLOBIN 30.9 PG (27.0-31.0); MEAN CORPUSCULAR HGB CONC 33.1 g/dL (33.0-36.5); MEAN CORPUSCULAR VOLUME 93.2 FL (78-98); MEAN PLATELET VOLUME 8.2 FL (7.4-10.4); PLATELET COUNT 397 X10'3 (140-440); RED BLOOD COUNT 3.23 X10'6 (4.20-5.60); RED CELL DISTRIBUTION WIDTH 15.3 % (11.5-14.5); WHITE BLOOD COUNT 9.9 X10'3 (4.5-11.0)
[2020-12-13 17:39] LABS: HEMATOCRIT 30.8 % (35.0-45.0); HEMOGLOBIN 10.5 g/dl (12.0-16.0); MEAN CORPUSCULAR HEMOGLOBIN 31.7 PG (27.0-31.0); MEAN CORPUSCULAR VOLUME 93.2 FL (78-98); MEAN PLATELET VOLUME 8.3 FL (7.4-10.4); PLATELET COUNT 396 X10'3 (140-440); RED BLOOD COUNT 3.31 X10'6 (4.20-5.60); RED CELL DISTRIBUTION WIDTH 15.5 % (11.5-14.5); WHITE BLOOD COUNT 10.3 X10'3 (4.5-11.0)
[2020-12-13 18:00] VITALS: BP 146/46
--- NOTE | 2020-12-13 18:20 | NUR ---
Problems reprioritized. Patient report given, questions answered & plan of care reviewed with RADHIKA Squires.
--- NOTE | 2020-12-13 20:53 | NUR ---
Gave pm flecainide. Pharm message noted-K+ was 3.4 this morning. Gave dose 3/3 replacement and went ahead and gave pm dose of med-okd by charge nurse María.
[2020-12-13] MEDS: insulin glargine (Lantus) pen - multi-dose SQ SCH (20:59)
[2020-12-13 22:00] VITALS: BP 153/56
[2020-12-14] VITALS (17 sets, daily range): BP systolic 109–164; BP diastolic 32–81
[2020-12-14 00:15] LABS: HEMATOCRIT 31.3 % (35.0-45.0); HEMOGLOBIN 10.4 g/dl (12.0-16.0); MEAN CORPUSCULAR HEMOGLOBIN 30.8 PG (27.0-31.0); MEAN CORPUSCULAR HGB CONC 33.3 g/dL (33.0-36.5); MEAN CORPUSCULAR VOLUME 92.7 FL (78-98); MEAN PLATELET VOLUME 8.3 FL (7.4-10.4); PLATELET COUNT 426 X10'3 (140-440); RED BLOOD COUNT 3.38 X10'6 (4.20-5.60); WHITE BLOOD COUNT 12.5 X10'3 (4.5-11.0)
[2020-12-14] MEDS: albuterol 2.5 MG/3 ML nebule NEB SCH ×4 (02:21→20:46)
[2020-12-14 06:10] LABS: ALBUMIN 2.5 G/DL (3.4-5.0); ANION GAP 6 (8-16); BLOOD UREA NITROGEN 21 MG/DL (7-18); CALCIUM 9.3 MG/DL (8.5-10.1); CHLORIDE 101 MMOL/L (99-107); GLUCOSE 93 MG/DL (70-104); MAGNESIUM 1.7 MG/DL (1.5-2.4); POTASSIUM 3.9 MMOL/L (3.5-5.1); SODIUM 140 MMOL/L (135-145); eGFR 34 ML/MIN
[2020-12-14 06:33] LABS: BASOPHILS # (AUTO) 0.1 X10'3 (0-0.2); BASOPHILS % (AUTO) 0.8 % (0-1); EOSINOPHILS # (AUTO) 0.5 X10'3 (0-0.9); EOSINOPHILS % (AUTO) 4.5 % (0-6); LYMPHOCYTES # (AUTO) 2.1 X10'3 (1.1-4.8); LYMPHOCYTES % (AUTO) 17.9 % (21-51); MEAN CORPUSCULAR HEMOGLOBIN 31.1 PG (27.0-31.0); MEAN CORPUSCULAR HGB CONC 33.3 g/dL (33.0-36.5); MEAN CORPUSCULAR VOLUME 93.4 FL (78-98); MEAN PLATELET VOLUME 8.1 FL (7.4-10.4); MONOCYTES # (AUTO) 0.9 X10'3 (0-0.9); NEUTROPHILS # (AUTO) 8.1 X10'3 (1.8-7.7); NEUTROPHILS % (AUTO) 68.8 % (42-75); PLATELET COUNT 490 X10'3 (140-440); RED BLOOD COUNT 3.54 X10'6 (4.20-5.60); RED CELL DISTRIBUTION WIDTH 15.3 % (11.5-14.5); WHITE BLOOD COUNT 11.7 X10'3 (4.5-11.0)
--- NOTE | 2020-12-14 06:47 | NUR ---
Patient in room ORTHO 4023A. I have received report from RADHIKA LOPEZ and had the opportunity to ask questions and assume patient care.
[2020-12-14] MEDS: montelukast 10mg tablet PO SCH (07:44)
[2020-12-14] MEDS: furosemide 10 MG/1 ML 10ml inj IV SCH (07:44)
[2020-12-14] MEDS: heparin, porcine 5000 units/ml vial SQ SCH ×2 (07:44→19:10)
[2020-12-14] MEDS: aspirin 325mg tablet PO SCH (07:45)
[2020-12-14] MEDS: atorvastatin 10mg tablet PO SCH (07:45)
[2020-12-14] MEDS: carvedilol 6.25mg tablet PO SCH ×2 (07:45→19:09)
[2020-12-14] MEDS: ferrous sulfate 325mg tablet PO SCH (07:45)
[2020-12-14] MEDS: pantoprazole 40mg Tablet.DR PO SCH (07:45)
[2020-12-14] MEDS: predniSONE 1 mg tablet PO SCH (07:45)
[2020-12-14] MEDS: lactobacillus rhamnosus 10,000 MMU CELLS/CAPSULE PO SCH ×2 (07:45→19:09)
[2020-12-14] MEDS: levoTHYROXINE 25mcg tablet PO SCH (07:45)
[2020-12-14] MEDS: ESCITALOPRAM OXALATE 5 MG TABLET PO SCH (07:46)
[2020-12-14] MEDS: colchicine 0.6mg tablet PO SCH (07:46)
[2020-12-14] MEDS: flecainide 50mg tablet PO SCH ×2 (07:48→19:09)
[2020-12-14] MEDS: K and/or MAG REPLACEMENT MC SCH ×2 (08:00→19:15)
[2020-12-14] MEDS: budesonide 0.5mg/2ml UD nebule IH SCH ×2 (08:00→20:46)
[2020-12-14] MEDS ORDERED: heparin 10,000 units/1 ML INJ ONE (08:31)
[2020-12-14] MEDS ORDERED: labetalol 20mg/4ml (5mg/ml) syringe IV PRN (08:35)
[2020-12-14] MEDS ORDERED: acetaminophen 1,000mg/100ml IV 100 ML IV PRN (08:35)
[2020-12-14] MEDS ORDERED: hydrALAZINE 20mg/ml inj. IV PRN (08:35)
[2020-12-14] MEDS ORDERED: ringers solution, lacted 1,000 ML IV SCH (08:35)
[2020-12-14] MEDS ORDERED: proCHLORperazine 10 MG/2 ml inj IV PRN (08:35)
[2020-12-14] MEDS ORDERED: morphine 2 MG/ML inj. syringe IV PRN (08:35)
[2020-12-14] MEDS ORDERED: ondansetron/PF 4mg/2ml inj IV PRN (08:35)
[2020-12-14] MEDS ORDERED: morphine 4 MG/ML inj SYRINge IV PRN (08:35)
[2020-12-14] MEDS ORDERED: HYDROmorphone/PF 0.2 MG/ML SYRINGE IV PRN ×2 (08:35)
[2020-12-14] MEDS ORDERED: sevoflurane 250ml liquid IH ONE (09:16)
[2020-12-14] MEDS ORDERED: rocuronium 10mg/ml inj IV ONE (09:16)
[2020-12-14] MEDS ORDERED: midazolam 1 mg/ML 2ml injection ONE (09:27)
[2020-12-14] MEDS ORDERED: LIDOcaine 2% 5ml jelly ONE (09:27)
[2020-12-14] MEDS ORDERED: LIDOcaine 2% (20mg/ml) 5ml vial ONE (09:41)
[2020-12-14] MEDS ORDERED: propofol inj 20 ML IV ONE (09:41)
[2020-12-14] MEDS ORDERED: 0.9 % SODIUM CHLORIDE 10 ML VIAL ONE (09:41)
[2020-12-14] MEDS ORDERED: ceFAZolin 1000mg inj ONE ×2 (09:41)
[2020-12-14] MEDS ORDERED: ePHEDrine 50MG/ML INJ. ONE (09:41)
[2020-12-14] MEDS ORDERED: fentaNYL/PF 50MCG/1 ML 2ML syringe ONE (09:50)
[2020-12-14] MEDS ORDERED: ondansetron/PF 4mg/2ml inj ONE (09:52)
[2020-12-14] MEDS ORDERED: dexamethasone sod phosphate 4mg/ml inj. ONE (09:52)
[2020-12-14] MEDS ORDERED: sugammadex 200mg/2ml injection IV ONE (10:31)
--- NOTE | 2020-12-14 10:49 | NUR ---
Received from OR via , accompanied by Anesthesiologist DR KHANNA and report given by Anesthesiolgist.AWAKENS TO VOCIE. VITALS STABLE. DRESSING DI. NIKKI PAIN. LARRY WITH CLEAR URINE.
--- NOTE | 2020-12-14 11:29 | NUR ---
Report called to receiving nurse. Transferred via BED Belongings . Special Issues communicated to receiving nurse. AWAKE AND ORIENTED. VITALS STABLE. DRESSING DI. NIKKI PAIN. TO ORTHO RM 4026O AT THIS TIME.
[2020-12-14] MEDS: benzonatate 100mg capsule PO PRN (11:39)
[2020-12-14 13:13] LABS: HEMATOCRIT 31.7 % (35.0-45.0); HEMOGLOBIN 10.7 g/dl (12.0-16.0); MEAN CORPUSCULAR HEMOGLOBIN 31.2 PG (27.0-31.0); MEAN CORPUSCULAR HGB CONC 33.8 g/dL (33.0-36.5); MEAN CORPUSCULAR VOLUME 92.4 FL (78-98); MEAN PLATELET VOLUME 8.1 FL (7.4-10.4); PLATELET COUNT 446 X10'3 (140-440); RED BLOOD COUNT 3.43 X10'6 (4.20-5.60); RED CELL DISTRIBUTION WIDTH 15.7 % (11.5-14.5); WHITE BLOOD COUNT 10.8 X10'3 (4.5-11.0)
[2020-12-14] MEDS: HYDROcodone/acetaminophen 10/325mg tab PO PRN ×3 (14:11→23:37)
[2020-12-14] MEDS: ceFAZolin/D5W- 1GM premix 50 ML IV SCH ×2 (15:31→23:48)
[2020-12-14 17:27] LABS: HEMATOCRIT 32.1 % (35.0-45.0); HEMOGLOBIN 10.4 g/dl (12.0-16.0); MEAN CORPUSCULAR HEMOGLOBIN 30.5 PG (27.0-31.0); MEAN CORPUSCULAR HGB CONC 32.4 g/dL (33.0-36.5); PLATELET COUNT 447 X10'3 (140-440); RED BLOOD COUNT 3.42 X10'6 (4.20-5.60); RED CELL DISTRIBUTION WIDTH 15.7 % (11.5-14.5); WHITE BLOOD COUNT 11.5 X10'3 (4.5-11.0)
--- NOTE | 2020-12-14 18:16 | NUR ---
Problems reprioritized. Patient report given, questions answered & plan of care reviewed with RADHIKA LOPEZ.
[2020-12-14] MEDS: insulin Lispro (HumaLOG) vial - multi-dose SQ SCH (19:06)
[2020-12-14] MEDS: insulin glargine (Lantus) pen - multi-dose SQ SCH (22:04)
[2020-12-14 23:02] LABS: HEMATOCRIT 31.7 % (35.0-45.0); HEMOGLOBIN 10.4 g/dl (12.0-16.0); MEAN CORPUSCULAR HEMOGLOBIN 30.4 PG (27.0-31.0); MEAN CORPUSCULAR HGB CONC 32.9 g/dL (33.0-36.5); MEAN CORPUSCULAR VOLUME 92.6 FL (78-98); MEAN PLATELET VOLUME 7.8 FL (7.4-10.4); PLATELET COUNT 467 X10'3 (140-440); RED BLOOD COUNT 3.42 X10'6 (4.20-5.60); RED CELL DISTRIBUTION WIDTH 15.5 % (11.5-14.5); WHITE BLOOD COUNT 13.4 X10'3 (4.5-11.0)
[2020-12-15] MEDS: benzocaine/menthol oral lozeng 1 EACH BOX MM PRN (00:40)
[2020-12-15] MEDS: albuterol 2.5 MG/3 ML nebule NEB SCH ×3 (02:22→14:05)
[2020-12-15] MEDS: HYDROcodone/acetaminophen 10/325mg tab PO PRN (05:07)
[2020-12-15 06:00] VITALS: BP 120/66
[2020-12-15 06:23] LABS: BASOPHILS % (AUTO) 0.2 % (0-1); EOSINOPHILS % (AUTO) 0 % (0-6); HEMOGLOBIN 10.1 g/dl (12.0-16.0); LYMPHOCYTES # (AUTO) 1.2 X10'3 (1.1-4.8); LYMPHOCYTES % (AUTO) 7.8 % (21-51); MEAN CORPUSCULAR HEMOGLOBIN 30.4 PG (27.0-31.0); MEAN CORPUSCULAR HGB CONC 32.7 g/dL (33.0-36.5); MEAN PLATELET VOLUME 7.9 FL (7.4-10.4); MONOCYTES # (AUTO) 0.6 X10'3 (0-0.9); MONOCYTES % (AUTO) 4.2 % (2-12); NEUTROPHILS # (AUTO) 13.5 X10'3 (1.8-7.7); NEUTROPHILS % (AUTO) 87.8 % (42-75); PLATELET COUNT 481 X10'3 (140-440); RED BLOOD COUNT 3.34 X10'6 (4.20-5.60); RED CELL DISTRIBUTION WIDTH 14.9 % (11.5-14.5); WHITE BLOOD COUNT 15.3 X10'3 (4.5-11.0)
[2020-12-15 06:46] LABS: ALBUMIN 2.2 G/DL (3.4-5.0); ANION GAP 10 (8-16); BLOOD UREA NITROGEN 20 MG/DL (7-18); BUN/CREATININE RATIO 13.1 (6.6-38.0); CALCIUM 8.7 MG/DL (8.5-10.1); CHLORIDE 98 MMOL/L (99-107); CREATININE 1.53 MG/DL (0.40-0.90); GLUCOSE 163 MG/DL (70-104); MAGNESIUM 1.6 MG/DL (1.5-2.4); POTASSIUM 4.2 MMOL/L (3.5-5.1); SODIUM 137 MMOL/L (135-145); TOTAL CARBON DIOXIDE 29.5 MMOL/L (24-32); eGFR 34 ML/MIN
[2020-12-15] MEDS: K and/or MAG REPLACEMENT MC SCH (07:24)
[2020-12-15] MEDS: budesonide 0.5mg/2ml UD nebule IH SCH (07:35)
[2020-12-15] MEDS: ESCITALOPRAM OXALATE 5 MG TABLET PO SCH (08:50)
[2020-12-15] MEDS: colchicine 0.6mg tablet PO SCH (08:51)
[2020-12-15] MEDS: levoTHYROXINE 25mcg tablet PO SCH (08:52)
[2020-12-15] MEDS: montelukast 10mg tablet PO SCH (08:52)
[2020-12-15] MEDS: atorvastatin 10mg tablet PO SCH (08:53)
[2020-12-15] MEDS: lactobacillus rhamnosus 10,000 MMU CELLS/CAPSULE PO SCH (08:53)
[2020-12-15] MEDS: flecainide 50mg tablet PO SCH (08:53)
[2020-12-15] MEDS: ferrous sulfate 325mg tablet PO SCH (08:53)
[2020-12-15] MEDS: carvedilol 6.25mg tablet PO SCH (08:53)
[2020-12-15] MEDS: predniSONE 1 mg tablet PO SCH (08:54)
[2020-12-15] MEDS: aspirin 325mg tablet PO SCH (08:56)
[2020-12-15] MEDS: pantoprazole 40mg Tablet.DR PO SCH (08:59)
[2020-12-15] MEDS: heparin, porcine 5000 units/ml vial SQ SCH (09:01)
[2020-12-15] MEDS: furosemide 10 MG/1 ML 10ml inj IV SCH (09:04)
[2020-12-15] MEDS: insulin Lispro (HumaLOG) vial - multi-dose SQ SCH (09:11)
[2020-12-15 10:11] VITALS: BP 137/57
[2020-12-15] MEDS ORDERED: LACT1CAP26 PO ×2 (12:39)
--- NOTE | 2020-12-15 15:08 | NUR ---
Per Dr Munson, patient can continue elequis on discharge
--- NOTE | 2020-12-15 16:15 | NUR ---
Pt voiding well already after dc of henry catheter
--- NOTE | 2020-12-15 16:52 | NUR ---
Pt discharged home with . Pt given extensive discharge instructions verbal and written for follow ups with multiple Drs including Dr Munson. They have been advised to call Dr hunt for appt on Monday. Pt has provina wound vac in place for discharge that Dr will take off on monday. Pt has been advised that wound vac will stop on own when treatment is done just prior to seeing Dr Munson more than likely but if it is not working sooner than that to call his office. She has been given extra supplies for trouble shooting leaks in clear dresssing and will have a home health nurse to follow. 2x IV's taken out, Dr Munson says for pt to continue elequis as Dr Naidu has also wrote on discharge. All belongings taken from room. Tele box dc'd Pt walked with nursing aid and did well and states she has a fww at home incase she needs it. Pt has been advised to call 911 or come to nearest ED with any emergent issues.
[2020-12-17] MEDS ORDERED: CLIN150C2 PO (05:14)
[2020-12-17] MEDS ORDERED: CEPH-585 PO (05:14)
[2020-12-17] MEDS ORDERED: CARV6.2513 PO (12:28)
[2020-12-17] MEDS ORDERED: FLEC50TA28 PO (12:29)
[2020-12-17] MEDS ORDERED: FERR325T7 PO (12:29)
[2020-12-17] MEDS ORDERED: METO-395 PO (12:30)
[2020-12-17] MEDS ORDERED: ASPI-1468 PO (12:31)
== END 2020-12-15 16:45 | disposition home health service (06) | DRG 253 ==
LOC: ER 17:52 → ED HOLD 12-11 02:46 → ORTHO 4S 12-11 17:14
PROVIDERS: ADMIT Internal Medicine; ATTEND Internal Medicine
PROC: B42F1ZZ Computerized Tomography (CT Scan) of Right Lower Extremity Arteries using Low Osmolar Contrast (ICD-10-PCS; 2020-12-10)
PROC: 5A09357 Assistance with Respiratory Ventilation, Less than 24 Consecutive Hours, Continuous Positive Airway Pressure (ICD-10-PCS; 2020-12-12)
PROC: 30233N1 Transfusion of Nonautologous Red Blood Cells into Peripheral Vein, Percutaneous Approach (ICD-10-PCS; 2020-12-12)
PROC: 06QM0ZZ Repair Right Femoral Vein, Open Approach (ICD-10-PCS; 2020-12-14)
PROC: 04QK0ZZ Repair Right Femoral Artery, Open Approach (ICD-10-PCS; principal; 2020-12-14 09:16)
DX: I77.0 Arteriovenous fistula, acquired (principal); L03.113 Cellulitis of right upper limb; I13.0 Hypertensive heart and chronic kidney disease with heart failure and stage 1 through stage 4 chronic kidney disease, or unspecified chronic kidney disease; I31.9 Disease of pericardium, unspecified; D62 Acute posthemorrhagic anemia; I50.30 Unspecified diastolic (congestive) heart failure; J84.10 Pulmonary fibrosis, unspecified; J44.9 Chronic obstructive pulmonary disease, unspecified; I25.10 Atherosclerotic heart disease of native coronary artery without angina pectoris; E03.9 Hypothyroidism, unspecified; E11.22 Type 2 diabetes mellitus with diabetic chronic kidney disease; E78.00 Pure hypercholesterolemia, unspecified; E78.5 Hyperlipidemia, unspecified; F32.9 Major depressive disorder, single episode, unspecified; G89.29 Other chronic pain; E66.9 Obesity, unspecified; I48.0 Paroxysmal atrial fibrillation; K64.9 Unspecified hemorrhoids; E87.6 Hypokalemia; M06.9 Rheumatoid arthritis, unspecified; M19.90 Unspecified osteoarthritis, unspecified site; N18.30 Chronic kidney disease, stage 3 unspecified; F41.9 Anxiety disorder, unspecified; K21.9 Gastro-esophageal reflux disease without esophagitis; M54.9 Dorsalgia, unspecified; Z90.710 Acquired absence of both cervix and uterus; Z88.2 Allergy status to sulfonamides; Z90.49 Acquired absence of other specified parts of digestive tract; Z68.33 Body mass index [BMI] 33.0-33.9, adult; Z79.899 Other long term (current) drug therapy; Z79.82 Long term (current) use of aspirin; Z79.890 Hormone replacement therapy; Z79.01 Long term (current) use of anticoagulants
CPT/HCPCS: 36415; 36430; 71045; 73706; 80048; 80053; 82948; 83036; 83735; 83880; 84484; 85025; 85027; 86885; 86900; 86901; 86920; 87081; 93005; 93926; 94640; 94667; 94668; 94760; 97110; 97116; 97161; 97530; 99285; A4618; A7000; C1758; C9399; G0378; J0690; J1100; J1644; J1815; J1940; J2001; J2250; J2405; J2704; J3010; J7030; J7040; J7120; J7512; J7626; J8610; P9016; Q9967